=== PATIENT | male | born 1960 | race Caucasian/White ===

== ENCOUNTER → 2016-10-21 | Outpatient (CLI) | payer MEDICARE, OTHER | LOC: KOH-I 15:09 | DX: R10.32 Left lower quadrant pain (principal) | CPT/HCPCS: 74000 ==

== ENCOUNTER → 2017-01-06 | Outpatient (CLI) | payer MEDICARE, OTHER | LOC: SLEEP-COR 14:31 | DX: G47.33 Obstructive sleep apnea (adult) (pediatric) (principal) | CPT/HCPCS: 95810 ==

== ENCOUNTER → 2020-12-06 | Day surgery (SDC) | payer MEDICARE, OTHER ==
[~2020-12-06] MED LIST: BEVESPI AEROS10.7 GM SQ; BUMETANIDE0.5 MG PO; CLARITIN10 M2 PO; CLARITIN10 MG PO; CRESTOR20 MG PO; FLOMAX 0.4 MG0.4 MG PO; JARDIANCE25 MG PO; LEVOTHYROXINE125 MCG PO; LINZESS290 MCG PO; LOW DOSE ASPIRI81 MG PO; METOPROLOL SUCC25 MG PO; NOVOLOG FL100 UNIT/1 INJ; POTASSIUM CHLO10 ME1 PO; PROSCAR5 MG PO; PROTONIX 40 MG40 M1 PO; SINGULAIR10 MG PO; TRESIBA100 UNIT/1 SQ; VALIUM 10 MG TA10 MG PO; VICTOZA 3-0.6 MG/0.1 SQ
== END | disposition home or self-care (01) ==
LOC: OR 11:18
DX: N40.1 Benign prostatic hyperplasia with lower urinary tract symptoms (principal); N32.89 Other specified disorders of bladder; E11.9 Type 2 diabetes mellitus without complications; J30.9 Allergic rhinitis, unspecified; M19.90 Unspecified osteoarthritis, unspecified site; J44.9 Chronic obstructive pulmonary disease, unspecified; K21.9 Gastro-esophageal reflux disease without esophagitis; E78.00 Pure hypercholesterolemia, unspecified; E03.9 Hypothyroidism, unspecified; G47.33 Obstructive sleep apnea (adult) (pediatric); Z20.822 Contact with and (suspected) exposure to COVID-19; Z79.4 Long term (current) use of insulin; Z79.82 Long term (current) use of aspirin; Z79.890 Hormone replacement therapy; Z79.899 Other long term (current) drug therapy; Z87.891 Personal history of nicotine dependence; Z88.5 Allergy status to narcotic agent; Z88.8 Allergy status to other drugs, medicaments and biological substances
CPT/HCPCS: 81001; 82962; C2617; J7040; J7120; U0002

== ENCOUNTER → 2021-01-24 | Day surgery (SDC) | payer MEDICARE, OTHER | END | disposition home or self-care (01) | LOC: OR 07:14 | DX: N40.0 Benign prostatic hyperplasia without lower urinary tract symptoms (principal); E11.9 Type 2 diabetes mellitus without complications; J44.9 Chronic obstructive pulmonary disease, unspecified; Z87.891 Personal history of nicotine dependence; Z79.899 Other long term (current) drug therapy; Z79.4 Long term (current) use of insulin | CPT/HCPCS: 82962; C1769; C1894; C2617; J1100; J1956; J2001; J2405; J2704; J3010; J7040; J7120; L8699 ==

== ENCOUNTER → 2021-12-09 | Outpatient (CLI) | payer MEDICARE, OTHER | LOC: EXRD 08:32 | DX: Z00.00 Encounter for general adult medical examination without abnormal findings (principal); J98.4 Other disorders of lung | CPT/HCPCS: 71046 ==

== ENCOUNTER → 2022-03-03 | Outpatient (CLI) | payer MEDICARE, OTHER | LOC: EXRD 09:08 | DX: Z00.00 Encounter for general adult medical examination without abnormal findings (principal) | CPT/HCPCS: 71046 ==